=== PATIENT | female | born 1950 ===

== ENCOUNTER 2016-12-14 13:30 | Outpatient (CLI) | payer MEDICARE ==
--- NOTE | 2016-12-14 16:26 | Magnetic Resonance Report ---
MRI BRAIN WITHOUT CONTRAST INDICATION: CVA. COMPARISON: None similar at this institution. FINDINGS: Noncontrast multiplanar and multisequence MRI of the brain demonstrates approximately 3.7 x 2.6 cm right parietal encephalomalacia inferiorly, axial series 8, image 18. Otherwise symmetric, age-appropriate ventricles and sulci with mild periventricular and few white matter FLAIR and T2 weighted hyperintensities. No acute infarct, hemorrhage mass effect or midline shift. No abnormal extra axial masses or fluid collections. Normal major intracranial vascular flow voids. Approximately 6 mm right cerebellar lacunar infarct posteriorly. Otherwise normal posterior fossa with symmetric seventh and eighth nerve complexes and preserved basilar cisterns. Normal eye globes. Mild nasal septal deviation. Clear imaged paranasal sinuses and mastoid air cells. Normal midline structures without evidence of Chiari malformation. CONCLUSION: No acute intracranial MRI abnormality with old right parietal infarct and few other incidental findings, as above. Please correlate. Thank you for the opportunity to participate in this patient's care.
== END 2016-12-14 13:31 | disposition home or self-care (01) ==
LOC: SPVIMAG 13:30
PROVIDERS: ATTEND Internal Medicine Hematology & Oncology
DX: I63.9 Cerebral infarction, unspecified (principal); G93.89 Other specified disorders of brain
CPT/HCPCS: 70551